=== PATIENT | female | born 1955 | race Caucasian/White ===

== ENCOUNTER 2016-11-05 17:49 | Emergency (ER) | payer OTHER ==
[~2016-11-05] VITALS: Ht 165.1 cm; Wt 78.2 kg
[2016-11-05] MEDS ORDERED: FLEXERIL5 MG PO (19:55)
[2016-11-05 20:15] VITALS: BP 127/69
== END 2016-11-05 22:33 | disposition home or self-care (01) ==
LOC: EME 17:49
DX: S16.1XXA Strain of muscle, fascia and tendon at neck level, initial encounter (principal); I10 Essential (primary) hypertension; V49.10XA Passenger injured in collision with unspecified motor vehicles in nontraffic accident, initial encounter; Y92.411 Interstate highway as the place of occurrence of the external cause; F17.200 Nicotine dependence, unspecified, uncomplicated
CPT/HCPCS: 72050; 99281; 99284

== ENCOUNTER 2017-10-24 16:54 | Emergency (ER) | payer OTHER ==
[~2017-10-24] VITALS: Ht 165.1 cm; Wt 87.5 kg
[~2017-10-24 16:54] MED LIST: FLEXERIL5 MG PO
[2017-10-24 18:20] VITALS: BP 153/91
== END 2017-10-24 18:24 | disposition home or self-care (01) ==
LOC: EME 16:54
PROC: 3E0234Z Introduction of Serum, Toxoid and Vaccine into Muscle, Percutaneous Approach (ICD-10-PCS; principal; 2017-10-24)
DX: S80.811A Abrasion, right lower leg, initial encounter (principal); S80.812A Abrasion, left lower leg, initial encounter; F16.10 Hallucinogen abuse, uncomplicated; V49.40XA Driver injured in collision with unspecified motor vehicles in traffic accident, initial encounter; W22.11XA Striking against or struck by driver side automobile airbag, initial encounter; Y92.410 Unspecified street and highway as the place of occurrence of the external cause; Z23 Encounter for immunization; F17.200 Nicotine dependence, unspecified, uncomplicated
CPT/HCPCS: 99281; 99283